=== PATIENT | male | born 1990 | race African-American/Black ===

== ENCOUNTER 2019-11-22 23:22 | Emergency (ER) | payer OTHER ==
[~2019-11-22] VITALS: Ht 177.8 cm; Wt 86.4 kg
[~2019-11-22 23:22] MED LIST: ABILIFY30 MG PO; DEPAKOTE500 M2 PO; NICORETTE GUM2 MG BC; SEROQUEL XR200 MG PO
[2019-11-22 23:24] VITALS: TEMP 100
[2019-11-22] MEDS ORDERED: SEROQUEL 2525 MG/TAB PO (23:35)
[2019-11-22] MEDS ORDERED: SEROQUEL50 MG PO (23:35)
[2019-11-22] MEDS ORDERED: DEPAKOTE ER 50500 MG PO (23:36)
[2019-11-23] MEDS ORDERED: TAMIFLU 75MG75 MG PO (00:50)
[2019-11-23 01:04] VITALS: BP 100/58; PULSE 93
== END 2019-11-23 01:05 | disposition home or self-care (01) ==
LOC: COL.ER 23:22
DX: J09.X2 Influenza due to identified novel influenza A virus with other respiratory manifestations (principal)